=== PATIENT | female | born 1950 | race African-American/Black ===

== ENCOUNTER 2016-08-23 13:29 | Emergency (ER) | payer MEDICARE, MEDICAID ==
[~2016-08-23] VITALS: Ht 157.5 cm; Wt 94.3 kg
[~2016-08-23 13:29] MED LIST: ALBU8.5H2 IH; CARV6.25 PO; HYDR1TAB4 PO; LORA1TAB82 PO; METH500T PO; NIFE90TA PO; PARO20TA51 PO; TEMA30CA5 PO; TIMO1DRO2 OP; TRAV2.5D2 RIGHTEYE
[2016-08-23 14:28] LABS: CALCIUM, SERUM 9.1 mg/dL (8.5-10.1); CREATININE 0.7 mg/dL (0.6-1.3); POTASSIUM 3.9 mmol/L (3.5-5.1)
[2016-08-23 14:31] LABS: BASOPHILS # (AUTO) 0.1 /CMM (0.0-0.2); BASOPHILS % (AUTO) 0.9 % (0.0-2.0); DIFF TOTAL % 100 %; EOSINOPHILS # (AUTO) 0.4 /CMM (0.0-0.7); EOSINOPHILS % (AUTO) 2.8 % (0.0-6.0); HEMATOCRIT 43 % (33-45); HEMOGLOBIN 13.5 g/dL (11.5-14.8); LYMPHOCYTES # (AUTO) 4.6 /CMM (0.8-4.8); LYMPHOCYTES % (AUTO) 36.6 % (20.0-44.0); MEAN CORPUSCULAR HEMOGLOBIN 26 PG (26.0-33.0); MEAN CORPUSCULAR HGB CONC 32 g/dl (31.0-36.0); MEAN CORPUSCULAR VOLUME 83 fL (82-100); MONOCYTES # (AUTO) 0.6 /CMM (0.1-1.30); MONOCYTES % (AUTO) 4.8 % (2.0-12.0); NEUTROPHILS % (AUTO) 54.9 % (43.0-81.0); PLATELET COUNT (AUTO) 295 /CMM (150-450); RED BLOOD CELL COUNT(AUTO) 5.14 MIL/uL (4.0-5.2); WHITE BLOOD COUNT (AUTO) 12.7 K/uL (4.3-11.0)
[2016-08-23 14:33] LABS: ALBUMIN 3.8 g/dL (3.4-5.0); BILIRUBIN,DIRECT 0.1 mg/dL (0.0-0.2); BILIRUBIN,TOTAL 0.3 mg/dL (0.2-1.0); INDIRECT BILIRUBIN 0.2 mg/dL (0.0-1.1); TOTAL PROTEIN, SERUM 7.7 g/dL (6.4-8.2)
[2016-08-23 14:55] LABS: LACTIC ACID 0.6 mmol/L (0.4-2.0)
[2016-08-23] MEDS ORDERED: ACETAMINOPHEN W/ CODEINE#3 1 EA TABLET ONE (15:51)
[2016-08-23 16:29] LABS: ADD UA MICROSCOPIC NO; KETONES,URINE Negative (NEGATIVE); LEUKOCYTE ESTERASE ,URINE Negative (NEGATIVE); PH,URINE 5.5 (5.0-8.0)
[2016-08-23] MEDS ORDERED: ACETAMINOPHEN W/ CODEINE#3 1 EA TABLET PO ONE (16:30)
[2016-08-23 17:15] VITALS: BP 137/71
== END 2016-08-23 17:16 | disposition home or self-care (01) ==
LOC: ER 13:31
DX: D72.829 Elevated white blood cell count, unspecified (principal); I10 Essential (primary) hypertension; M06.9 Rheumatoid arthritis, unspecified; Z85.3 Personal history of malignant neoplasm of breast; Z88.6 Allergy status to analgesic agent; Z88.8 Allergy status to other drugs, medicaments and biological substances
CPT/HCPCS: 36415; 71010; 80048; 80076; 81001; 83605; 85025; 99285; A4606; 81000-TC; Z7610

== ENCOUNTER 2017-01-30 14:34 | Outpatient (CLI) | payer MEDICARE, MEDICAID | END 2017-01-30 23:59 | disposition home or self-care (01) | LOC: RAD 14:34 | PROVIDERS: ATTEND Family Medicine | DX: M16.12 Unilateral primary osteoarthritis, left hip (principal); M79.661 Pain in right lower leg; M79.89 Other specified soft tissue disorders | CPT/HCPCS: 73502; 93971-TC ==

== ENCOUNTER 2017-10-06 22:08 | Emergency (ER) | payer MEDICARE, MEDICAID ==
[~2017-10-06] VITALS: Ht 157.5 cm; Wt 97.5 kg
[~2017-10-06 22:08] MED LIST changes: -ALBU8.5H2 IH; +ALBU8.5H8 IH; +LORA-259 PO; -LORA1TAB82 PO
[2017-10-06 22:19] VITALS: BP 170/81
[2017-10-06] MEDS ORDERED: diphenhydrAMINE HCL 50 MG/ML VIAL ONE (22:38)
[2017-10-06] MEDS ORDERED: diphenhydrAMINE HCL 50 MG/ML VIAL IM ONE (23:00)
== END 2017-10-06 22:59 | disposition home or self-care (01) ==
LOC: ER 22:10
DX: L50.0 Allergic urticaria (principal); H40.9 Unspecified glaucoma; I10 Essential (primary) hypertension; M06.9 Rheumatoid arthritis, unspecified; Z85.3 Personal history of malignant neoplasm of breast; Z88.6 Allergy status to analgesic agent; Z88.5 Allergy status to narcotic agent; Z88.8 Allergy status to other drugs, medicaments and biological substances
CPT/HCPCS: 96372; 99283; A4606; J1200; Z7610

== ENCOUNTER 2017-12-28 18:18 | Emergency (ER) | payer MEDICARE, MEDICAID ==
[~2017-12-28] VITALS: Ht 157.5 cm; Wt 97.1 kg
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
--- NOTE | 2017-12-28 18:50 | NUR ---
US AT BS.
[2017-12-28] MEDS ORDERED: HYDROCODONE/APAP 5/325MG 1 EACH TABLET PO ONE (19:00)
[2017-12-28] MEDS ORDERED: HYDROCODONE/APAP 5/325MG 1 EACH TABLET ONE (19:04)
[2017-12-28 19:51] VITALS: BP 142/66
--- NOTE | 2017-12-28 19:53 | NUR ---
Patient discharged to home in stable condition. Written and verbal after care instructions given. Patient verbalizes understanding of instruction. PT ambulatory with a steady gait VITAL SIGNS WITHIN NORMAL LIMITS.
== END 2017-12-28 19:52 | disposition home or self-care (01) ==
LOC: ER 18:20
DX: M79.604 Pain in right leg (principal); M25.561 Pain in right knee; H40.9 Unspecified glaucoma; I10 Essential (primary) hypertension; M06.9 Rheumatoid arthritis, unspecified; F17.200 Nicotine dependence, unspecified, uncomplicated; Z85.3 Personal history of malignant neoplasm of breast; Z88.6 Allergy status to analgesic agent; Z88.8 Allergy status to other drugs, medicaments and biological substances
CPT/HCPCS: 93971; 99284; A4606; Z7610

== ENCOUNTER 2018-02-27 18:19 | Emergency (ER) | payer MEDICARE, MEDICAID ==
[~2018-02-27] VITALS: Ht 157.5 cm; Wt 93.0 kg
[2018-02-27 18:28] VITALS: BP 151/70
--- NOTE | 2018-02-27 18:50 | NUR ---
RECEIVED A VERBAL ORDER FROM DR ACEVEDO TO GIVE NORCO 5-325 TAB PO O ONE INSTEAD OF NORCO 10-325 TAB. ORDER WAS CARRIED OUT.
[2018-02-27] MEDS ORDERED: ONDANSETRON 4 MG TAB.RAPDIS ONE (18:58)
[2018-02-27] MEDS ORDERED: HYDROCODONE/APAP 5/325MG 1 EACH TABLET ONE (18:58)
[2018-02-27] MEDS ORDERED: HYDROCODONE/APAP 10/325MG 1 EA TABLET PO ONE (19:00)
[2018-02-27] MEDS ORDERED: ONDANSETRON 4 MG TAB.RAPDIS SL ONE (19:00)
== END 2018-02-27 19:43 | disposition home or self-care (01) ==
LOC: ER 18:22
DX: G89.29 Other chronic pain (principal); M25.562 Pain in left knee; M25.561 Pain in right knee; M13.862 Other specified arthritis, left knee; M13.861 Other specified arthritis, right knee; I10 Essential (primary) hypertension; F32.9 Major depressive disorder, single episode, unspecified; F41.9 Anxiety disorder, unspecified; H40.9 Unspecified glaucoma; F17.200 Nicotine dependence, unspecified, uncomplicated; Z88.5 Allergy status to narcotic agent; Z88.6 Allergy status to analgesic agent; Z85.3 Personal history of malignant neoplasm of breast
CPT/HCPCS: 99283; A4606; Q0162; Z7610

== ENCOUNTER 2018-03-13 10:48 | Outpatient (CLI) | payer MEDICARE, MEDICAID | END 2018-03-13 23:59 | disposition home or self-care (01) | LOC: RAD 10:48 | PROVIDERS: ATTEND Family Medicine | DX: Z01.818 Encounter for other preprocedural examination (principal); I70.0 Atherosclerosis of aorta | CPT/HCPCS: 71046 ==

== ENCOUNTER 2018-05-24 13:41 | Outpatient (CLI) | payer MEDICARE, MEDICAID ==
[~2018-05-24 13:41] MED LIST changes: +PARO-144 PO; -PARO20TA51 PO
== END 2018-05-24 23:59 | disposition home or self-care (01) ==
LOC: RAD 13:41
PROVIDERS: ATTEND Family Medicine
DX: M16.0 Bilateral primary osteoarthritis of hip (principal); M17.12 Unilateral primary osteoarthritis, left knee; M51.27 Other intervertebral disc displacement, lumbosacral region; I70.0 Atherosclerosis of aorta
CPT/HCPCS: 72100-TC; 73502; 73562

== ENCOUNTER 2018-10-17 16:19 | Emergency (ER) | payer MEDICARE, MEDICAID ==
[~2018-10-17] VITALS: Ht 157.5 cm; Wt 95.3 kg
[2018-10-17 16:51] VITALS: BP 151/74
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
[2018-10-17] MEDS ORDERED: HYDROCODONE/APAP 5/325MG 1 EACH TABLET PO ONE (17:30)
[2018-10-17] MEDS ORDERED: HYDROCODONE/APAP 5/325MG 1 EACH TABLET ONE (17:38)
[2018-10-17] MEDS ORDERED: KETOROLAC TROMETHAMINE INJ 30 MG/ML VIAL IM ONE (19:30)
[2018-10-17] MEDS ORDERED: KETOROLAC TROMETHAMINE 15 MG/ML VIAL ONE (19:34)
--- NOTE | 2018-10-17 19:47 | NUR ---
Patient discharged to home in stable condition. Written and verbal after care instructions given. Patient verbalizes understanding of instruction. R VELCRO SPLINT APPLIED BY OUMOU HODGSON.
== END 2018-10-17 19:49 | disposition home or self-care (01) ==
LOC: ER 16:19
DX: S16.1XXA Strain of muscle, fascia and tendon at neck level, initial encounter (principal); S60.222A Contusion of left hand, initial encounter; S20.211A Contusion of right front wall of thorax, initial encounter; S50.811A Abrasion of right forearm, initial encounter; H26.9 Unspecified cataract; H54.40 Blindness, one eye, unspecified eye; I10 Essential (primary) hypertension; F17.200 Nicotine dependence, unspecified, uncomplicated; Z98.890 Other specified postprocedural states; Z88.6 Allergy status to analgesic agent; Z88.5 Allergy status to narcotic agent; Z60.2 Problems related to living alone; V49.49XA Driver injured in collision with other motor vehicles in traffic accident, initial encounter; Y93.89 Activity, other specified; Y92.410 Unspecified street and highway as the place of occurrence of the external cause; Y99.8 Other external cause status
CPT/HCPCS: 29125; 71045; 73090; 73130; 99283; A4606; J1885

== ENCOUNTER 2018-11-28 10:03 | Outpatient (CLI) | payer MEDICARE, MEDICAID | END 2018-11-28 23:59 | disposition home or self-care (01) | LOC: CT 10:03 | PROVIDERS: ATTEND Family Medicine | DX: M17.0 Bilateral primary osteoarthritis of knee (principal); I67.82 Cerebral ischemia; I67.2 Cerebral atherosclerosis; M76.892 Other specified enthesopathies of left lower limb, excluding foot; M76.891 Other specified enthesopathies of right lower limb, excluding foot | CPT/HCPCS: 70450-TC; 73562 ==

== ENCOUNTER 2018-12-26 15:05 | Emergency (ER) | payer MEDICARE, MEDICAID ==
[~2018-12-26] VITALS: Ht 160 cm; Wt 95.3 kg
[2018-12-26] MEDS ORDERED: KETOROLAC TROMETHAMINE INJ 30 MG/ML VIAL ONE (15:51)
[2018-12-26] MEDS ORDERED: KETOROLAC TROMETHAMINE INJ 60 MG/2 ML VIAL IM ONE (16:00)
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
[2018-12-26 16:32] VITALS: BP 156/72
--- NOTE | 2018-12-26 16:33 | NUR ---
Patient discharged to home in stable condition. Written and verbal after care instructions given. Patient verbalizes understanding of instruction.
== END 2018-12-26 16:32 | disposition home or self-care (01) ==
LOC: ER 15:05
DX: F41.9 Anxiety disorder, unspecified (principal); G89.29 Other chronic pain; I10 Essential (primary) hypertension; H54.40 Blindness, one eye, unspecified eye; F17.200 Nicotine dependence, unspecified, uncomplicated; Z98.890 Other specified postprocedural states; Z88.6 Allergy status to analgesic agent; Z88.5 Allergy status to narcotic agent; Z60.2 Problems related to living alone
CPT/HCPCS: 96372; 99284; J1885

== ENCOUNTER 2019-01-08 11:02 | Outpatient (CLI) | payer MEDICARE, MEDICAID | END 2019-01-08 23:59 | disposition home or self-care (01) | LOC: RAD 11:02 | PROVIDERS: ATTEND Family Medicine | DX: M85.88 Other specified disorders of bone density and structure, other site (principal); M50.31 Other cervical disc degeneration, high cervical region; M25.78 Osteophyte, vertebrae; M25.512 Pain in left shoulder | CPT/HCPCS: 72040-TC; 73030-TC ==

== ENCOUNTER 2019-01-10 10:14 | Emergency (ER) | payer MEDICARE, MEDICAID ==
[~2019-01-10] VITALS: Ht 160 cm; Wt 95.3 kg
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
[2019-01-10] MEDS ORDERED: MORPHINE SULFATE INJ 2 MG/ML DISP.SYRIN ONE (10:45)
[2019-01-10] MEDS ORDERED: ONDANSETRON HCL/PF 4 MG/2 ML VIAL ONE (10:45)
[2019-01-10 10:54] LABS: BASOPHILS # (AUTO) 0.1 /CMM (0.0-0.2); BASOPHILS % (AUTO) 0.8 % (0.0-2.0); EOSINOPHILS % (AUTO) 2.8 % (0.0-6.0); HEMATOCRIT 45 % (33-45); HEMOGLOBIN 14.5 g/dL (11.5-14.8); LYMPHOCYTES # (AUTO) 4.1 /CMM (0.8-4.8); LYMPHOCYTES % (AUTO) 32.3 % (20.0-44.0); MEAN CORPUSCULAR HGB CONC 33 g/dl (31.0-36.0); MEAN CORPUSCULAR VOLUME 85 fL (82-100); MONOCYTES # (AUTO) 0.9 /CMM (0.1-1.30); NEUTROPHILS # (AUTO) 7.2 /CMM (1.8-8.9); NEUTROPHILS % (AUTO) 57.1 % (43.0-81.0); PLATELET COUNT (AUTO) 294 /CMM (150-450); RED BLOOD CELL COUNT(AUTO) 5.24 MIL/uL (4.0-5.2); WHITE BLOOD COUNT (AUTO) 12.6 K/uL (4.3-11.0)
[2019-01-10 11:00] LABS: APPEARANCE,URINE Clear (CLEAR); BILIRUBIN,URINE Negative (NEGATIVE); BLOOD, URINE Negative Ery/uL (NEGATIVE); COLOR,URINE Yellow (YELLOW); KETONES,URINE Negative (NEGATIVE); LEUKOCYTE ESTERASE ,URINE Negative (NEGATIVE); NITRITE, URINE Negative (NEGATIVE); PH,URINE 6.5 (5.0-8.0); PROTEIN,URINE Negative (NEGATIVE); UGLUCOSE Negative (NEGATIVE); UROBILINOGEN,URINE 0.2 EU/dL (0.2)
[2019-01-10] MEDS ORDERED: MORPHINE SULFATE INJ 2 MG/ML DISP.SYRIN IV ONE ×2 (11:00→12:30)
[2019-01-10] MEDS ORDERED: ONDANSETRON HCL/PF 4 MG/2 ML VIAL IVP ONE (11:00)
[2019-01-10 11:09] LABS: CALCIUM, SERUM 9.3 mg/dL (8.5-10.1); CARBON DIOXIDE 27 mmol/L (21-32); CHLORIDE 106 mmol/L (98-107); CREATININE 0.7 mg/dL (0.6-1.3); GLUCOSE 119 mg/dL (74-106); POTASSIUM 4.1 mmol/L (3.5-5.1); SODIUM SERUM 142 mmol/L (136-145); UREA NITROGEN, BLOOD 14 mg/dL (7-18)
[2019-01-10 11:14] LABS: ALANINE AMINOTRANSFERASE 18 U/L (12-78); ALBUMIN 3.8 g/dL (3.4-5.0); ALKALINE PHOSPHATASE 67 U/L (46-116); ASPARTATE AMINOTRANSFERASE 13 U/L (15-37); BILIRUBIN,TOTAL 0.3 mg/dL (0.2-1.0); TOTAL PROTEIN, SERUM 7.8 g/dL (6.4-8.2)
--- NOTE | 2019-01-10 11:25 | NUR ---
PATIENT A/OX4, NAD, VSS. WILL CONTINUE TO MONITOR.
[2019-01-10] MEDS ORDERED: MORPHINE SULFATE INJ 4 MG/ML DISP.SYRIN ONE (12:09)
--- NOTE | 2019-01-10 12:52 | NUR ---
Patient a/ox4, breathing even and unlabored, no sob noted. PIV removed. Patient discharged to home in stable condition. Written and verbal after care instructions given. Patient verbalizes understanding of instruction.
[2019-01-10 12:56] VITALS: BP 150/64
--- NOTE | 2019-01-10 13:10 | NUR ---
TAP CARD PROVIDED, PATIENT A/OX4, AMBULATES WITH STEADY GAIT. RX PROVIDED AND EXPLAINED, DISCHARGE IN STABLE CONDITION.
== END 2019-01-10 13:26 | disposition home or self-care (01) ==
LOC: ER 10:17
DX: R51 Headache (principal); I10 Essential (primary) hypertension; M79.604 Pain in right leg; R42 Dizziness and giddiness; H54.40 Blindness, one eye, unspecified eye; F17.200 Nicotine dependence, unspecified, uncomplicated; Z98.890 Other specified postprocedural states; Z88.6 Allergy status to analgesic agent; Z88.5 Allergy status to narcotic agent; Z60.2 Problems related to living alone
CPT/HCPCS: 36415; 70450; 71045; 72125; 80048; 80076; 81001; 82962; 84484; 85025; 85730; 93005; 96374; 96375; 96376; 99284; J2270 ×2; J2405; 81000-TC

== ENCOUNTER 2025-04-25 11:49 | Emergency (ER) | payer MEDICARE, OTHER ==
[~2025-04-25] VITALS: Ht 157.5 cm; Wt 91.2 kg
[2025-04-25] MEDS ORDERED: KETOROLAC TROMETHAMINE 15 MG/ML VIAL ONE (12:48)
[2025-04-25] MEDS ORDERED: FAMOTIDINE/PF INJ 20 MG/2 ML VIAL IV ONE (12:48)
[2025-04-25] MEDS ORDERED: ONDANSETRON HCL/PF 4 MG/2 ML VIAL ONE (12:48)
[2025-04-25 12:57] LABS: PLATELET COUNT (AUTO) 364 K/uL (150-450); RED BLOOD CELL COUNT(AUTO) 4.86 MIL/uL (4.0-5.2); RED CELL DISTRIBUTION WIDTH 15.7 % (11.5-15.0); WHITE BLOOD COUNT (AUTO) 11.4 K/uL (4.3-11.0)
[2025-04-25 13:00] LABS: CALCIUM, SERUM 9.0 mg/dL (8.5-10.1); CREATININE 1.0 mg/dL (0.6-1.3); SODIUM SERUM 141.0 mmol/L (136-145); UREA NITROGEN, BLOOD 14.0 mg/dL (7-18)
[2025-04-25] MEDS: KETOROLAC TROMETHAMINE 15 MG/ML VIAL IV ONE (13:00)
[2025-04-25] MEDS: FAMOTIDINE/PF INJ 20 MG/2 ML VIAL IV ONE (13:00)
[2025-04-25] MEDS: ONDANSETRON HCL/PF 4 MG/2 ML VIAL IV ONE (13:01)
[2025-04-25] MEDS: D5W IV ONE (13:14)
[2025-04-25] MEDS: DEXAMETHASONE SOD PHOSPHATE IV ONE (13:14)
[2025-04-25] MEDS ORDERED: PANT20TA17 PO (13:36)
[2025-04-25] MEDS ORDERED: MELO5CAP PO (13:37)
[2025-04-25] MEDS ORDERED: PRED20TA PO (14:00)
[2025-04-25 14:22] LABS: ERYTHROCYTE SEDIMENTATION RATE 77 MM/HR (0-30)
[2025-04-25 14:55] LABS: PLATELET ESTIMATE ADEQUATE
[2025-04-26] MEDS ORDERED: MELO-105 PO (17:30)
[2025-04-30 08:43] VITALS: BP 140/95; TEMP 98.5; O2SAT 96
== END 2025-04-25 14:34 | disposition home or self-care (01) ==
LOC: ER 11:55
DX: M25.562 Pain in left knee (principal); M06.9 Rheumatoid arthritis, unspecified; I10 Essential (primary) hypertension; H54.62 Unqualified visual loss, left eye, normal vision right eye; H40.9 Unspecified glaucoma; F17.200 Nicotine dependence, unspecified, uncomplicated; M17.11 Unilateral primary osteoarthritis, right knee; Z88.6 Allergy status to analgesic agent; Z79.899 Other long term (current) drug therapy; Z88.5 Allergy status to narcotic agent
CPT/HCPCS: 99284; 96365; 96375; 73080; 73564; 85025; 80048; 85652; 36415; J1885; J1100; J1308; J2405; J7060